=== PATIENT | female | born 1950 | race Caucasian/White ===

== ENCOUNTER → 2019-04-17 14:30 | Outpatient (CLI) | payer MEDICARE | END | disposition home or self-care (01) | LOC: D.MAMMO 14:30 | PROVIDERS: ATTEND Urology | DX: Z12.31 Encounter for screening mammogram for malignant neoplasm of breast (principal) ==

== ENCOUNTER 2019-06-03 06:16 | Emergency (ER) | payer MEDICARE, BC ==
[~2019-06-03] VITALS: Ht 152.4 cm; Wt 72.7 kg
[2019-06-03 06:21] VITALS: Ht 152.4 cm; Wt 72.7 kg
[2019-06-03] MEDS ORDERED: BACLOFEN10 MG PO (06:23)
[2019-06-03] MEDS ORDERED: MOBIC7.5 MG PO (06:24)
[2019-06-03 07:39] LABS: BASOPHILS 0.5 % (0-2); EOSINOPHILS 0.5 % (0-7); HEMATOCRIT 43.5 % (36.0-48.0); HEMOGLOBIN 15.1 g/dL (12-16); IMMATURE GRANULOCYTES 0.1 % (0-5); LYMPHOCYTES 22.9 % (15-50); MCH 30.6 pg (26.0-34.0); MCHC 34.7 g/dL (31.0-37.0); MCV 88.2 fL (80.0-100.0); MEAN PLATELET VOLUME 9.6 fL (7.4-10.4); MONOCYTES 5.6 % (2-11); NEUTROPHILS 70.4 % (40-80); PLATELET COUNT 286 10x3/uL (130-400); RBC 4.93 10x6/uL (4.00-5.40); RDW 12.9 % (11.5-14.5); WBC 10.2 10x3/uL (4.8-10.8)
[2019-06-03 07:44] LABS: APPEARANCE CLEAR (CLEAR); BILIRUBIN NEGATIVE (NEGATIVE); COLOR STRAW (YELLOW); GLUCOSE NEGATIVE (NEGATIVE); KETONE NEGATIVE (NEGATIVE); NITRITE NEGATIVE (NEGATIVE); PROTEIN NEGATIVE (NEGATIVE); UROBILINOGEN NORMAL (NORMAL)
[2019-06-03 07:47] LABS: APTT 30.9 SECONDS (22.8-39.4); INR 0.97 (0.85-1.17); PROTIME 12.4 SECONDS (11.6-15.0)
[2019-06-03] MEDS ORDERED: ANTIVERT12.5 MG PO (07:54)
[2019-06-03 08:03] LABS: ALBUMIN 3.4 g/dL (3.4-5.0); ALKALINE PHOSPHATASE 71 U/L (46-116); ALT (SGPT) 12 U/L (10-68); CALC OSMOLALITY 282 mosm/kg (275-300); CARBON DIOXIDE 26.9 mmol/L (21.0-32.0); CHLORIDE - SERUM 107 mmol/L (98-107); CREATININE - SERUM 0.8 mg/dL (0.6-1.3); GLUCOSE 119 mg/dL (74-106); POTASSIUM - SERUM 3.7 mmol/L (3.5-5.1); PROTEIN - SERUM 6.9 g/dL (6.4-8.2); SODIUM 142 mmol/L (136-145); UREA NITROGEN 10 mg/dL (7-18); eGFR NON AFRICAN AMERICAN 76 mL/min (90-120)
[2019-06-03 08:14] VITALS: BP 159/64
[2019-06-03 08:15] LABS: CKMB 1.5 U/L (0.0-3.6); CREATINE KINASE 127 UL (21-215); THYROID STIMULATING HORMONE 2.64 uIU/mL (0.36-3.74)
[2019-06-03 08:17] LABS: TROPONIN-I < 0.017 ng/mL (0.000-0.060)
== END 2019-06-03 08:15 | disposition home or self-care (01) ==
LOC: D.ER 06:16
PROVIDERS: Family Medicine
DX: R42 Dizziness and giddiness (principal); R03.0 Elevated blood-pressure reading, without diagnosis of hypertension; F17.210 Nicotine dependence, cigarettes, uncomplicated; R11.0 Nausea; M79.7 Fibromyalgia; M19.90 Unspecified osteoarthritis, unspecified site